=== PATIENT | male | born 1955 | race Caucasian/White ===

== ENCOUNTER → 2024-02-25 12:24 | Outpatient (REF) | payer OTHER, SELFPAY | LOC: RAD 12:24 | PROVIDERS: ATTENDING PHYSICIAN Internal Medicine | DX: M25.512 Pain in left shoulder (principal) | CPT/HCPCS: 73030 ==

== ENCOUNTER → 2024-04-08 09:56 | Outpatient (REF) | payer OTHER, SELFPAY | LOC: RCS 09:56 | PROVIDERS: ATTENDING PHYSICIAN Internal Medicine | DX: R93.1 Abnormal findings on diagnostic imaging of heart and coronary circulation (principal) | CPT/HCPCS: 93017; 93350 ==